=== PATIENT | male | born 1995 | race Caucasian/White ===

== ENCOUNTER 2022-01-25 11:54 | Emergency (ER) | payer MEDICAID, OTHER ==
[~2022-01-25] VITALS: Ht 188 cm; Wt 89.0 kg
[2022-01-25 11:59] VITALS: BP 137/95
[2022-01-25] MEDS ORDERED: TETRACAINE 0.5% OPHTH DROPS 4ML RIGHTEYE ONE (14:00)
[2022-01-25] MEDS ORDERED: FLUORESCEIN SODIUM 1MG/STRIP RIGHTEYE ONE (14:00)
[2022-01-25] MEDS ORDERED: BALANCED SALT IRRIG SOLN 15ML IR ONE (14:00)
[2022-01-25] MEDS ORDERED: POLY15DR31 RIGHTEYE (14:27)
== END 2022-01-25 15:11 | disposition home or self-care (01) ==
LOC: ER 12:06
DX: T15.91XA Foreign body on external eye, part unspecified, right eye, initial encounter (principal); X58.XXXA Exposure to other specified factors, initial encounter; Y93.89 Activity, other specified; Y92.89 Other specified places as the place of occurrence of the external cause; Y99.8 Other external cause status
CPT/HCPCS: 99283